=== PATIENT | female | born 2000 ===

== ENCOUNTER 2019-05-24 00:01 | Emergency (ER) | payer BC ==
[2019-05-24] MEDS ORDERED: Acetaminophen TAB* 325 MG PO ONE (00:43)
--- NOTE | 2019-05-24 00:43 | ED ---
Back Pain - HPI Summary HPI Summary: Patient complains of "butt pain" status post mechanical fall at 3 PM today. Patient landed on her rear end on stone. Patient has been ambulatory, but states pain is not getting any better. Patient took Aleve 9 PM with no relief. Denies change in urine, change in BM, loss of sensation or function in bilateral lower extremities, any other injury, pain or symptoms. Medical history is none. - History of Current Complaint Chief Complaint: EDBackInjuryPain Stated Complaint: FALL PER PT Time Seen by Provider: 05/24/19 00:33 Hx Obtained From: Patient Onset/Duration: Started Hours Ago Timing: Constant Back Pain Location: Is Discrete @ Severity Initially: Moderate Severity Currently: Moderate Pain Intensity: 7 Pain Scale Used: 0-10 Numeric Character: Dull, Aching, Throbbing Aggravating Symptom(s): Movement, Walking Alleviating Symptom(s): Rest, Position Associated Signs And Symptoms: Positive: Negative - Allergies/Home Medications Allergies/Adverse Reactions: Allergies Allergy/AdvReac Type Severity Reaction Status Date / Time No Known Allergies Allergy Verified 05/24/19 00:07 PMH/Surg Hx/FS Hx/Imm Hx Endocrine/Hematology History: Denies: Hx Anticoagulant Therapy Cardiovascular History: Denies: Hx Pacemaker/ICD History: Denies: Hx Dialysis Sensory History: Denies: Hx Eye Injury Opthamlomology History: Denies: Hx Legally Blind EENT History: Denies: Hx Deafness Neurological History: Denies: Hx CVA Infectious Disease History: No Infectious Disease History: Denies: Traveled Outside the [place] in Last 30 Days - Family History Known Family History: Positive: Non-Contributory - Social History Alcohol Use: None Substance Use Type: Reports: None Smoking Status (MU): Never Smoked Tobacco Review of Systems Constitutional: Negative Eyes: Negative ENT: Negative Cardiovascular: Negative Respiratory: Negative Gastrointestinal: Negative Genitourinary: Negative Musculoskeletal: Other Skin: Negative Neurological: Negative Psychological: Normal All Other Systems Reviewed And Are Negative: Yes Physical Exam - Summary Physical Exam Summary: No ecchymosis, erythema, deformity, swelling, mass noted to lower back. Tenderness to palpation along spine in gluteal cleft. PMS intact distally on bilateral lower extremities. Triage Information Reviewed: Yes Vital Signs On Initial Exam: Initial Vitals Temp Pulse Resp BP Pulse Ox 97.9 F 70 18 120/78 98 05/24/19 00:03 05/24/19 00:03 05/24/19 00:03 05/24/19 00:03 05/24/19 00:03 Vital Signs Reviewed: Yes Appearance: Positive: Well-Appearing Skin: Positive: Warm Head/Face: Positive: Normal Head/Face Inspection Eyes: Positive: Normal Neck: Positive: Supple Respiratory/Lung Sounds: Positive: Clear to Auscultation Cardiovascular: Positive: Normal Abdomen Description: Positive: Nontender Musculoskeletal: Positive: Normal Neurological: Positive: Normal Psychiatric: Positive: Normal AVPU Assessment: Alert - Criders Coma Scale Best Eye Response: 4 - Spontaneous Best Motor Response: 6 - Obeys Commands Best Verbal Response: 5 - Oriented Coma Scale Total: 15 Procedures - Sedation Patient Received Moderate/Deep Sedation with Procedure: No Diagnostics - Vital Signs Vital Signs Temp Pulse Resp BP Pulse Ox 05/24/19 00:03 97.9 F 70 18 120/78 98 - Laboratory Lab Statement: Any lab studies that have been ordered have been reviewed, and results considered in the medical decision making process. Back Pain Course/Dx - Course Course Of Treatment: Patient complains of "butt pain" status post mechanical fall at 3 PM today. Patient landed on her rear end on stone. Patient has been ambulatory, but states pain is not getting any better. Patient took Aleve 9 PM with no relief. Denies change in urine, change in BM, loss of sensation or function in bilateral lower extremities, any other injury, pain or symptoms. Medical history is none. Vital signs within normal limits. X-ray of lumbar spine, sacrum and coccyx negative for fracture. - Diagnoses Provider Diagnoses: Tailbone injury Discharge ED - Sign-Out/Discharge Documenting (check all that apply): Patient Departure - Discharge Plan Condition: Stable Disposition: HOME Patient Education Materials: Coccyx Injury (ED) Forms: *School Release Referrals: No Primary Care Phys,NOPCP [Primary Care Provider] - Additional Instructions: Alternate ibuprofen 400 mg with Tylenol 650 mg every 3 hours if needed for pain. Use cushion to sit. Avoid strenuous exertion of your lower extremities. Return to the ED for any new or worsening symptoms. - Billing Disposition and Condition Condition: STABLE Disposition: Home
[2019-05-24 02:10] VITALS: BP 116/72
== END 2019-05-24 02:00 | disposition home or self-care (01) ==
LOC: ED 00:01
DX: S39.92XA Unspecified injury of lower back, initial encounter (principal); W19.XXXA Unspecified fall, initial encounter; Y92.9 Unspecified place or not applicable
CPT/HCPCS: 72110; 99282; A9270-GY